=== PATIENT | male | born 1985 | race Caucasian/White ===

== ENCOUNTER 2017-11-07 20:06 | Emergency (ER) | payer OTHER ==
[~2017-11-07] VITALS: Ht 180.3 cm; Wt 104.3 kg
[2017-11-07] MEDS ORDERED: ZANTAC 150MG T150 MG PO (20:49)
[2017-11-07] MEDS ORDERED: DOXYCYCLINE 10100 MG PO (20:49)
[2017-11-07] MEDS ORDERED: HYDROXYZINE HCL25 M2 PO (20:49)
[2017-11-07] MEDS ORDERED: MEDROLDOSEPACK PO (20:49)
[2017-11-07 20:56] VITALS: BP 147/87
== END 2017-11-07 20:57 | disposition home or self-care (01) ==
LOC: M.ERS 20:06
DX: L25.9 Unspecified contact dermatitis, unspecified cause (principal); F17.210 Nicotine dependence, cigarettes, uncomplicated; Z88.1 Allergy status to other antibiotic agents